=== PATIENT | male | born 1985 | race Caucasian/White ===

== ENCOUNTER 2019-07-30 09:17 | Outpatient (CLI) | payer OTHER, SELFPAY ==
[2019-07-30 11:05] LABS: Calculated LDL 94 mg/dL; Cholesterol 207 mg/dL (50-200); Glucose 73 mg/dL (70-100); HDL Cholesterol 91 mg/dL (40-60); Triglyceride 112 mg/dL (30-150)
== END 2019-07-30 09:37 ==
PROVIDERS: PCP Family Medicine; Visit Provider Family Medicine
DX: Z13.220 Encounter for screening for lipoid disorders; Z13.1 Encounter for screening for diabetes mellitus; Z00.00 Encounter for general adult medical examination without abnormal findings
CPT/HCPCS: 36415; 80061; 82947

== ENCOUNTER 2020-12-08 09:20 | Outpatient (CLI) | payer OTHER, SELFPAY ==
[2020-12-09 13:29] LABS: COVID-19 RT-PCR UVMMC Result Negative (Negative)
== END 2020-12-08 09:21 | disposition home or self-care (01) ==
PROVIDERS: PCP Family Medicine; Visit Provider Family Medicine
DX: Z20.828 Contact with and (suspected) exposure to other viral communicable diseases (principal)
CPT/HCPCS: U0003

== ENCOUNTER 2021-04-05 19:08 | Outpatient (REF) | payer OTHER, SELFPAY ==
[2021-04-07 14:12] LABS: COVID-19 RT-PCR UVMMC Result Negative (Negative)
== END 2021-04-05 19:09 | disposition home or self-care (01) ==
LOC: LBN 19:08
PROVIDERS: PCP Family Medicine; Visit Provider Nurse Practitioner Family
DX: Z20.822 Contact with and (suspected) exposure to COVID-19 (principal)
CPT/HCPCS: U0003

== ENCOUNTER 2024-06-10 13:18 | Outpatient (CLI) | payer OTHER, SELFPAY ==
--- NOTE | 2024-06-10 12:15 | DI.RAD_ITS ---
Exam(s) XR CHEST 2V PA LATERAL EXAM: XR CHEST 2V PA LATERAL CLINICAL HISTORY: evaluate pathology R05.9 COUGH. TECHNIQUE: 2D digital imaging was performed. COMPARISON: No exams were available for comparison FINDINGS: 2 views: Heart size is normal. The mediastinum is not widened. Bilateral hyperinflation but no infiltrates nor pleural effusions. No pulmonary edema. No pneumotho rax. IMPRESSION: No acute pulmonary findings.Inflation evident. DATA REPOSITORY: RADIATION DOSE DELIVERED:
== END 2024-06-10 13:38 ==
LOC: DI 13:20
PROVIDERS: PCP Family Medicine; Visit Provider Nurse Practitioner Family
DX: R05.9 Cough, unspecified (principal)
CPT/HCPCS: 71046